=== PATIENT | male | born 1975 | race Hispanic/Latino ===

== ENCOUNTER 2020-08-06 16:38 | Inpatient (IN) | payer OTHER, SELFPAY ==
[2020-08-06] MEDS ORDERED: Ondansetron PF 4 MG/2 ML Vial ONE (17:29)
[2020-08-06 17:33] LABS: #Monocytes 0.7 thou/uL (0.11-0.59); #Neutrophils 11.1 thou/uL (1.40-6.50); %Basophils 0.3 % (0.0-1.0); %Eosinophils 0.4 % (0.0-10.0); %Monocytes 5.2 % (0.0-10.0); %Neutrophils 86.2 % (42.0-75.0); Hemoglobin 11.5 g/dL (14.0-18.0); Mean Corpuscular HGB CONC 31.4 g/dL (32.0-36.0); Mean Corpuscular Hemoglobin 27.4 pg (27.0-31.0); Mean Corpuscular Volume 87.1 fL (78.0-98.0); Mean Platelet Volume 8.8 fL (7.4-10.4); Platelet Count 331 thou/uL (130-400); RBC Distribution Width 12.3 % (11.5-14.5); Red Blood Cell (RBC) Count 4.21 mill/uL (4.70-6.10); White Blood Cell (WBC) Count 12.9 thou/uL (4.8-10.8)
[2020-08-06 17:43] LABS: ALT (SGPT) 10 U/L (8-55); AST (SGOT) 10 U/L (5-34); Albumin 3.1 g/dL (3.5-5.0); Alkaline Phosphatase 94 U/L (40-110); Anion Gap 14 mmol/L (10-20); BUN (Urea Nitrogen) 27 mg/dL (8.9-20.6); Bilirubin, Total 0.3 mg/dL (0.2-1.2); Calc. Creatinine Clearance 0 mL/min (70-130); Calcium 8.6 mg/dL (7.8-10.44); Carbon Dioxide 22 mmol/L (22-29); Chloride 97 mmol/L (98-107); Globulin 4.4 g/dL (2.4-3.5); Magnesium 2.1 mg/dL (1.6-2.6); Phosphorus 3.1 mg/dL (2.3-4.7); Potassium 4.5 mmol/L (3.5-5.1); Protein, Total 7.5 g/dL (6.0-8.3); Sodium 128 mmol/L (136-145)
[2020-08-06 17:53] LABS: Base Excess-Venous -0.6 mmol/L (-2.0 to 3.0); Bicarbonate (HCO3v) 23.3 mmol/L (22.0-28.0); CO2 Tension (PvCO2) 34.8 mmHg (40.0-50.0); Chloride 98 mmol/L (98-107); Hemoglobin - Calc 11.2 g/dL (14.0-18.0); Potassium 4.5 mmol/L (3.5-5.1); Sodium 131 mmol/L (138-145); T. Carbon Dioxide 24.4 mmol/L (22.0-28.0); vO2 Saturation-calc 92.5 % (60.0-85.0)
[2020-08-06 18:01] LABS: Glucose 726 mg/dL (70-105)
[2020-08-06 18:03] LABS: Bilirubin Negative (Negative); Blood, Urine 2+ (Negative); Clarity Turbid (Clear); Glucose, Urine (Dipstick) Greater than 1000 mg/dL (Negative); Ketone, Urine Negative (Negative); Leukocyte 500 Leu/uL (Negative); Nitrite 1+ (Negative); Protein, Urine (Dipstick) 100 mg/dL (Neg-Trace); Squamous Epithelial None Seen HPF (0-3); Urobilinogen Normal mg/dL (Less than 2); WBC/HPF Greater than 50 HPF (0-3); pH, Urine 5.5 (5.0-9.0)
[2020-08-06 18:04] LABS: Bacteria/HPF 1+ HPF (None Seen)
[2020-08-06] MEDS ORDERED: Cefepime 2 GM VIAL ONE (18:15)
[2020-08-06] MEDS ORDERED: Vancomycin 1 GM/200 ML BAG ONE (19:05)
[2020-08-06] MEDS ORDERED: Clindamycin/D5W 900 mg/50 ml Premix Bag ONE (19:05)
[2020-08-06 19:09] LABS: SARS-CoV-2 NAA Rapid Test DETECTED (NotDetected)
[2020-08-06 22:01] VITALS: BMI 21.4
[2020-08-06] MEDS ORDERED: Dextrose 5% in Water 1,000 ML IV PRN (22:45)
[2020-08-06] MEDS ORDERED: Dextrose 50% Abboject 50 ML SYRINGE IVP PRN (22:45)
[2020-08-06] MEDS ORDERED: Acetaminophen 500 MG TAB PO PRN (22:56)
[2020-08-06] MEDS ORDERED: Morphine 2 MG/ML VIAL SLOW IVP PRN (22:56)
[2020-08-06] MEDS: Acetaminophen/Codeine 30-300mg Tablet PO PRN (23:14)
[2020-08-06] MEDS: HumaLOG 300 UNITS/3 ML VIAL SC PRN (23:15)
[2020-08-07] MEDS: Piperacillin/Tazobactam 4.5 GM in Sodium Chloride 0.9% 100 ML IVPB SCH ×4 (00:50→23:01)
[2020-08-07] MEDS: HumaLOG 300 UNITS/3 ML VIAL SC PRN (05:47)
[2020-08-07 06:04] LABS: #Eosinphils 0.1 thou/uL (0.0-0.7); #Lymphocytes 1.7 thou/uL (1.20-3.40); #Monocytes 0.8 thou/uL (0.11-0.59); #Neutrophils 9.5 thou/uL (1.40-6.50); %Basophils 0.2 % (0.0-1.0); %Eosinophils 0.5 % (0.0-10.0); %Lymphocytes 13.9 % (21.0-51.0); %Monocytes 6.6 % (0.0-10.0); %Neutrophils 78.8 % (42.0-75.0); Hemoglobin 9.5 g/dL (14.0-18.0); Mean Corpuscular HGB CONC 33.1 g/dL (32.0-36.0); Mean Corpuscular Volume 84.7 fL (78.0-98.0); Mean Platelet Volume 8.7 fL (7.4-10.4); Platelet Count 289 thou/uL (130-400); Red Blood Cell (RBC) Count 3.38 mill/uL (4.70-6.10)
[2020-08-07] MEDS ORDERED: Sodium Chloride 0.9% 1,000 ML IV SCH (06:15)
[2020-08-07 06:21] LABS: Hemoglobin A1c Greater than 14.0 % (4.0-6.0)
[2020-08-07 06:33] LABS: Anion Gap 11 mmol/L (10-20); BUN (Urea Nitrogen) 20 mg/dL (8.9-20.6); Calc. Creatinine Clearance 92 mL/min (70-130); Calcium 7.8 mg/dL (7.8-10.44); Carbon Dioxide 24 mmol/L (22-29); Chloride 106 mmol/L (98-107); Glucose 337 mg/dL (70-105); Potassium 3.9 mmol/L (3.5-5.1); Sodium 137 mmol/L (136-145)
[2020-08-07] MEDS: Acetaminophen/Codeine 30-300mg Tablet PO PRN (07:53)
[2020-08-07] MEDS: Enoxaparin Sodium 40 MG/0.4 ML SYRINGE SC SCH (07:53)
[2020-08-07] MEDS: Cholecalciferol (Vitamin D3) 400 UNITS TAB PO SCH (07:54)
[2020-08-07] MEDS: Ascorbic Acid 500 mg Chewable Tablet PO SCH (07:54)
[2020-08-07] MEDS: Zinc Sulfate 220 MG CAP PO SCH (07:55)
[2020-08-07] MEDS: Insulin Glargine 15 UNITS in Pre-Filled Syringe 1 EACH SC SCH (08:45)
[2020-08-07] MEDS: Vancomycin 1 GM in Premix Bag 1 BAG IVPB SCH ×3 (11:07→23:57)
[2020-08-07] MEDS: HYDROcodone/Acetaminophen 5/325 mg Tablet PO PRN (11:07)
[2020-08-07] MEDS ORDERED: Magnevist 469MG/ML 20 ML VIAL ONE (12:14)
[2020-08-07] MEDS ORDERED: Dextrose 50% Abboject 50 ML SYRINGE SLOW IVP PRN (12:33)
[2020-08-07] MEDS ORDERED: Dextrose 5% in Water 1,000 ML IV PRN (12:33)
[2020-08-07] MEDS: Insulin Regular 300 UNITS/3 ML VIAL SC PRN ×3 (12:46→21:10)
[2020-08-07] MEDS ORDERED: Insulin Glargine 15 UNITS in Pre-Filled Syringe 1 EACH SC SCH (21:00)
[2020-08-07] MEDS: Insulin Glargine 25 UNITS in Pre-Filled Syringe 1 EACH SC SCH (21:10)
[2020-08-07 23:02] LABS: Vancomycin, Trough 10.1 ug/mL
[2020-08-08 07:25] LABS: Anion Gap 13 mmol/L (10-20); BUN (Urea Nitrogen) 18 mg/dL (8.9-20.6); CRP (Inflammatory) 15.52 mg/dL (= or < 0.5); Calc. Creatinine Clearance 84 mL/min (70-130); Carbon Dioxide 23 mmol/L (22-29); Chloride 104 mmol/L (98-107); Glucose 192 mg/dL (70-105); Potassium 3.5 mmol/L (3.5-5.1); Sodium 136 mmol/L (136-145)
[2020-08-08 07:54] LABS: #Eosinphils 0.1 thou/uL (0.0-0.7); #Lymphocytes 1.7 thou/uL (1.20-3.40); #Monocytes 0.8 thou/uL (0.11-0.59); #Neutrophils 12.3 thou/uL (1.40-6.50); %Basophils 0.3 % (0.0-1.0); %Eosinophils 0.5 % (0.0-10.0); %Lymphocytes 11.6 % (21.0-51.0); %Monocytes 5.4 % (0.0-10.0); %Neutrophils 82.2 % (42.0-75.0); Hemoglobin 9.4 g/dL (14.0-18.0); Mean Corpuscular HGB CONC 32.2 g/dL (32.0-36.0); Mean Corpuscular Hemoglobin 27.5 pg (27.0-31.0); Mean Corpuscular Volume 85.4 fL (78.0-98.0); Mean Platelet Volume 8.7 fL (7.4-10.4); Platelet Count 326 thou/uL (130-400); RBC Distribution Width 12.1 % (11.5-14.5); Red Blood Cell (RBC) Count 3.43 mill/uL (4.70-6.10); White Blood Cell (WBC) Count 14.9 thou/uL (4.8-10.8)
[2020-08-08] MEDS: Piperacillin/Tazobactam 4.5 GM in Sodium Chloride 0.9% 100 ML IVPB SCH ×3 (08:16→23:30)
[2020-08-08] MEDS: Zinc Sulfate 220 MG CAP PO SCH (08:17)
[2020-08-08] MEDS: Cholecalciferol (Vitamin D3) 400 UNITS TAB PO SCH (08:17)
[2020-08-08] MEDS: Ascorbic Acid 500 mg Chewable Tablet PO SCH (08:18)
[2020-08-08] MEDS: Enoxaparin Sodium 40 MG/0.4 ML SYRINGE SC SCH (08:19)
[2020-08-08] MEDS: Insulin Glargine 15 UNITS in Pre-Filled Syringe 1 EACH SC SCH (08:21)
[2020-08-08] MEDS ORDERED: Amlodipine 5 MG TAB PO SCH (09:00)
[2020-08-08] MEDS: Vancomycin 1 GM in Premix Bag 1 BAG IVPB SCH ×2 (11:31→23:26)
[2020-08-08] MEDS: Insulin Regular 300 UNITS/3 ML VIAL SC PRN ×3 (11:45→21:05)
[2020-08-08] MEDS: Acetaminophen/Codeine 30-300mg Tablet PO PRN (16:32)
[2020-08-08] MEDS: Amlodipine 5 MG TAB PO SCH (20:19)
[2020-08-08] MEDS: hydrALAZINE 20 MG/ML VIAL SLOW IVP PRN (20:19)
[2020-08-08] MEDS: Insulin Glargine 25 UNITS in Pre-Filled Syringe 1 EACH SC SCH (21:05)
[2020-08-08] MEDS: HumaLOG 300 UNITS/3 ML VIAL SC SCH (21:06)
[2020-08-08 23:13] LABS: Vancomycin, Trough 16.8 ug/mL
[2020-08-09 06:50] LABS: #Lymphocytes 1.8 thou/uL (1.20-3.40); #Monocytes 0.9 thou/uL (0.11-0.59); #Neutrophils 13.5 thou/uL (1.40-6.50); %Basophils 0.3 % (0.0-1.0); %Eosinophils 0.3 % (0.0-10.0); %Lymphocytes 10.8 % (21.0-51.0); %Monocytes 5.7 % (0.0-10.0); Hemoglobin 9.6 g/dL (14.0-18.0); Mean Corpuscular HGB CONC 33.1 g/dL (32.0-36.0); Mean Corpuscular Hemoglobin 28.3 pg (27.0-31.0); Mean Corpuscular Volume 85.7 fL (78.0-98.0); Mean Platelet Volume 7.9 fL (7.4-10.4); Platelet Count 327 thou/uL (130-400); RBC Distribution Width 12.1 % (11.5-14.5); Red Blood Cell (RBC) Count 3.39 mill/uL (4.70-6.10); White Blood Cell (WBC) Count 16.3 thou/uL (4.8-10.8)
[2020-08-09] MEDS: HumaLOG 300 UNITS/3 ML VIAL SC SCH ×4 (07:26→20:49)
[2020-08-09] MEDS: Cholecalciferol (Vitamin D3) 400 UNITS TAB PO SCH (09:17)
[2020-08-09] MEDS: Ascorbic Acid 500 mg Chewable Tablet PO SCH (09:18)
[2020-08-09] MEDS: Zinc Sulfate 220 MG CAP PO SCH (09:18)
[2020-08-09] MEDS: Amlodipine 5 MG TAB PO SCH ×2 (09:18→20:49)
[2020-08-09] MEDS: Acetaminophen/Codeine 30-300mg Tablet PO PRN (10:58)
[2020-08-09] MEDS: Insulin Glargine 15 UNITS in Pre-Filled Syringe 1 EACH SC SCH (11:03)
[2020-08-09] MEDS: Ondansetron PF 4 MG/2 ML Vial IVP PRN (13:00)
[2020-08-09] MEDS: Clindamycin/D5W 900 MG in Premix Bag 1 BAG IVPB SCH ×2 (13:00→20:49)
[2020-08-09] MEDS: Insulin Regular 300 UNITS/3 ML VIAL SC PRN (18:06)
[2020-08-09] MEDS: Insulin Glargine 25 UNITS in Pre-Filled Syringe 1 EACH SC SCH (20:49)
[2020-08-09] MEDS: HYDROcodone/Acetaminophen 5/325 mg Tablet PO PRN (20:51)
[2020-08-10] MEDS: Clindamycin/D5W 900 MG in Premix Bag 1 BAG IVPB SCH ×3 (05:05→21:32)
[2020-08-10 06:08] LABS: #Eosinphils 0.1 thou/uL (0.0-0.7); #Lymphocytes 1.5 thou/uL (1.20-3.40); #Neutrophils 11.2 thou/uL (1.40-6.50); %Basophils 0.2 % (0.0-1.0); %Eosinophils 0.9 % (0.0-10.0); %Lymphocytes 11.1 % (21.0-51.0); %Neutrophils 80.9 % (42.0-75.0); Hemoglobin 9.5 g/dL (14.0-18.0); Mean Corpuscular HGB CONC 33.4 g/dL (32.0-36.0); Mean Corpuscular Hemoglobin 29.1 pg (27.0-31.0); Mean Platelet Volume 7.6 fL (7.4-10.4); Platelet Count 322 thou/uL (130-400); RBC Distribution Width 12.3 % (11.5-14.5); Red Blood Cell (RBC) Count 3.27 mill/uL (4.70-6.10); White Blood Cell (WBC) Count 13.9 thou/uL (4.8-10.8)
[2020-08-10] MEDS ORDERED: Fentanyl 100 MCG/2 ML VIAL ONE (06:38)
[2020-08-10] MEDS ORDERED: Neomycin-Polymyxin 1 ML AMP ONE ×3 (06:39→06:50)
[2020-08-10] MEDS: Insulin Glargine 15 UNITS in Pre-Filled Syringe 1 EACH SC SCH (09:05)
[2020-08-10] MEDS: Cholecalciferol (Vitamin D3) 400 UNITS TAB PO SCH (09:05)
[2020-08-10] MEDS: Ascorbic Acid 500 mg Chewable Tablet PO SCH (09:05)
[2020-08-10] MEDS: Amlodipine 5 MG TAB PO SCH ×2 (09:05→20:33)
[2020-08-10] MEDS: HumaLOG 300 UNITS/3 ML VIAL SC SCH ×3 (09:06→20:34)
[2020-08-10] MEDS: Zinc Sulfate 220 MG CAP PO SCH (09:06)
[2020-08-10] MEDS: hydrALAZINE 20 MG/ML VIAL SLOW IVP PRN (12:11)
[2020-08-10] MEDS: Acetaminophen/Codeine 30-300mg Tablet PO PRN (14:52)
[2020-08-10] MEDS: Insulin Regular 300 UNITS/3 ML VIAL SC PRN (16:47)
[2020-08-10] MEDS: Insulin Glargine 25 UNITS in Pre-Filled Syringe 1 EACH SC SCH (20:34)
[2020-08-10] MEDS: HYDROcodone/Acetaminophen 5/325 mg Tablet PO PRN (20:39)
[2020-08-11] MEDS: Acetaminophen/Codeine 30-300mg Tablet PO PRN ×2 (05:15→13:43)
[2020-08-11] MEDS: Clindamycin/D5W 900 MG in Premix Bag 1 BAG IVPB SCH ×3 (05:15→21:11)
[2020-08-11 05:56] LABS: #Eosinphils 0.1 thou/uL (0.0-0.7); #Lymphocytes 1.4 thou/uL (1.20-3.40); #Neutrophils 9.9 thou/uL (1.40-6.50); %Basophils 0.1 % (0.0-1.0); %Eosinophils 1.1 % (0.0-10.0); %Lymphocytes 11.2 % (21.0-51.0); %Monocytes 7.9 % (0.0-10.0); %Neutrophils 79.7 % (42.0-75.0); Hemoglobin 9.4 g/dL (14.0-18.0); Mean Corpuscular HGB CONC 32.5 g/dL (32.0-36.0); Mean Corpuscular Hemoglobin 27.9 pg (27.0-31.0); Mean Corpuscular Volume 85.9 fL (78.0-98.0); Mean Platelet Volume 7.3 fL (7.4-10.4); Platelet Count 360 thou/uL (130-400); RBC Distribution Width 12.5 % (11.5-14.5); Red Blood Cell (RBC) Count 3.37 mill/uL (4.70-6.10); White Blood Cell (WBC) Count 12.4 thou/uL (4.8-10.8)
[2020-08-11 06:18] LABS: Anion Gap 12 mmol/L (10-20); BUN (Urea Nitrogen) 20 mg/dL (8.9-20.6); CRP (Inflammatory) 6.44 mg/dL (= or < 0.5); Calc. Creatinine Clearance 64 mL/min (70-130); Carbon Dioxide 26 mmol/L (22-29); Chloride 101 mmol/L (98-107); Glucose 91 mg/dL (70-105); Potassium 3.6 mmol/L (3.5-5.1); Sodium 135 mmol/L (136-145)
[2020-08-11] MEDS: Amlodipine 5 MG TAB PO SCH ×2 (08:06→21:06)
[2020-08-11] MEDS: Zinc Sulfate 220 MG CAP PO SCH (08:06)
[2020-08-11] MEDS: Cholecalciferol (Vitamin D3) 400 UNITS TAB PO SCH (08:06)
[2020-08-11] MEDS: Ascorbic Acid 500 mg Chewable Tablet PO SCH (08:07)
[2020-08-11] MEDS: Enoxaparin Sodium 40 MG/0.4 ML SYRINGE SC SCH (08:07)
[2020-08-11] MEDS: Insulin Glargine 15 UNITS in Pre-Filled Syringe 1 EACH SC SCH (08:07)
[2020-08-11] MEDS: HumaLOG 300 UNITS/3 ML VIAL SC SCH ×3 (08:08→21:07)
[2020-08-11] MEDS ORDERED: Benzonatate 100 MG CAP PO PRN (13:38)
[2020-08-11] MEDS ORDERED: HumaLOG 300 UNITS/3 ML VIAL SC SCH (21:00)
[2020-08-11] MEDS: Ondansetron PF 4 MG/2 ML Vial IVP PRN (21:11)
[2020-08-12] MEDS: Clindamycin/D5W 900 MG in Premix Bag 1 BAG IVPB SCH ×3 (05:01→21:07)
[2020-08-12 06:55] LABS: #Eosinphils 0.1 thou/uL (0.0-0.7); #Lymphocytes 1.5 thou/uL (1.20-3.40); #Monocytes 0.8 thou/uL (0.11-0.59); #Neutrophils 7.8 thou/uL (1.40-6.50); %Basophils 0.2 % (0.0-1.0); %Eosinophils 1.4 % (0.0-10.0); %Lymphocytes 14.8 % (21.0-51.0); %Monocytes 7.8 % (0.0-10.0); %Neutrophils 75.9 % (42.0-75.0); Hemoglobin 9.9 g/dL (14.0-18.0); Mean Corpuscular HGB CONC 33.2 g/dL (32.0-36.0); Mean Corpuscular Hemoglobin 28.3 pg (27.0-31.0); Mean Corpuscular Volume 85.3 fL (78.0-98.0); Mean Platelet Volume 7.4 fL (7.4-10.4); Platelet Count 391 thou/uL (130-400); RBC Distribution Width 12.4 % (11.5-14.5); Red Blood Cell (RBC) Count 3.48 mill/uL (4.70-6.10); White Blood Cell (WBC) Count 10.3 thou/uL (4.8-10.8)
[2020-08-12 07:14] LABS: Anion Gap 13 mmol/L (10-20); BUN (Urea Nitrogen) 17 mg/dL (8.9-20.6); Calc. Creatinine Clearance 65 mL/min (70-130); Calcium 8.4 mg/dL (7.8-10.44); Carbon Dioxide 24 mmol/L (22-29); Chloride 101 mmol/L (98-107); Glucose 129 mg/dL (70-105); Potassium 4.1 mmol/L (3.5-5.1); Sodium 134 mmol/L (136-145)
[2020-08-12] MEDS: Amlodipine 5 MG TAB PO SCH ×2 (07:45→20:30)
[2020-08-12] MEDS: Ascorbic Acid 500 mg Chewable Tablet PO SCH ×2 (07:45→13:08)
[2020-08-12] MEDS: Cholecalciferol (Vitamin D3) 400 UNITS TAB PO SCH ×2 (07:46→13:08)
[2020-08-12] MEDS: Zinc Sulfate 220 MG CAP PO SCH ×2 (07:46→13:08)
[2020-08-12] MEDS: HumaLOG 300 UNITS/3 ML VIAL SC SCH ×2 (07:47→21:08)
[2020-08-12] MEDS ORDERED: HYDROmorphone 0.5 MG/0.5 ML SYRINGE ONE (07:49)
[2020-08-12] MEDS: Enoxaparin Sodium 40 MG/0.4 ML SYRINGE SC SCH (07:59)
[2020-08-12] MEDS: Insulin Glargine 15 UNITS in Pre-Filled Syringe 1 EACH SC SCH (08:00)
[2020-08-12] MEDS ORDERED: Promethazine HCl 25 MG/ML VIAL SLOW IVP PRN (08:24)
[2020-08-12] MEDS ORDERED: Ondansetron HCl/PF 4 MG/2 ML Vial IVP PRN (08:24)
[2020-08-12] MEDS ORDERED: HYDROmorphone 2 MG/ML VIAL SLOW IVP PRN (08:24)
[2020-08-12] MEDS ORDERED: Promethazine HCl 25 MG/ML VIAL IM PRN (08:24)
[2020-08-12] MEDS ORDERED: PACU-Morphine 4MG/ML VIAL SLOW IVP PRN (08:24)
[2020-08-12] MEDS ORDERED: Fentanyl 100 MCG/2 ML VIAL ONE (09:06)
[2020-08-12] MEDS ORDERED: Lidocaine 1% PF 5 ML VIAL ONE (10:51)
[2020-08-12] MEDS ORDERED: PROPOFOL 200 MG/20 ML VIAL ONE (10:51)
[2020-08-12] MEDS ORDERED: Ondansetron PF 4 MG/2 ML Vial ONE (10:51)
[2020-08-12] MEDS ORDERED: Ketorolac Tromethamine 30 MG/ML VIAL ONE (10:51)
[2020-08-12] MEDS: HYDROcodone/Acetaminophen 5/325 mg Tablet PO PRN (20:29)
[2020-08-12] MEDS: Ondansetron PF 4 MG/2 ML Vial IVP PRN (20:38)
[2020-08-12] MEDS: hydrALAZINE 20 MG/ML VIAL SLOW IVP PRN (20:52)
[2020-08-13] MEDS: Clindamycin/D5W 900 MG in Premix Bag 1 BAG IVPB SCH ×3 (05:08→21:22)
[2020-08-13] MEDS: Insulin Regular 300 UNITS/3 ML VIAL SC PRN (05:09)
[2020-08-13] MEDS: Acetaminophen/Codeine 30-300mg Tablet PO PRN (05:11)
[2020-08-13] MEDS ORDERED: Labetalol HCl 100 MG/20 ML VIAL ONE (08:29)
[2020-08-13] MEDS: Ascorbic Acid 500 mg Chewable Tablet PO SCH (08:36)
[2020-08-13] MEDS: Insulin Glargine 15 UNITS in Pre-Filled Syringe 1 EACH SC SCH (08:37)
[2020-08-13] MEDS: Enoxaparin Sodium 40 MG/0.4 ML SYRINGE SC SCH (08:37)
[2020-08-13] MEDS: Cholecalciferol (Vitamin D3) 400 UNITS TAB PO SCH (08:37)
[2020-08-13] MEDS: Zinc Sulfate 220 MG CAP PO SCH (08:38)
[2020-08-13 09:02] LABS: #Eosinphils 0.1 thou/uL (0.0-0.7); #Lymphocytes 1.3 thou/uL (1.20-3.40); #Monocytes 0.8 thou/uL (0.11-0.59); #Neutrophils 9.7 thou/uL (1.40-6.50); %Basophils 0.3 % (0.0-1.0); %Eosinophils 0.5 % (0.0-10.0); %Lymphocytes 10.9 % (21.0-51.0); %Monocytes 6.5 % (0.0-10.0); %Neutrophils 81.8 % (42.0-75.0); Hemoglobin 9.5 g/dL (14.0-18.0); Mean Corpuscular HGB CONC 32.6 g/dL (32.0-36.0); Mean Corpuscular Hemoglobin 28.2 pg (27.0-31.0); Mean Corpuscular Volume 86.5 fL (78.0-98.0); Mean Platelet Volume 7.8 fL (7.4-10.4); Platelet Count 376 thou/uL (130-400); RBC Distribution Width 12.5 % (11.5-14.5); Red Blood Cell (RBC) Count 3.35 mill/uL (4.70-6.10); White Blood Cell (WBC) Count 11.8 thou/uL (4.8-10.8)
[2020-08-13 09:22] LABS: Anion Gap 14 mmol/L (10-20); BUN (Urea Nitrogen) 23 mg/dL (8.9-20.6); Calc. Creatinine Clearance 52 mL/min (70-130); Calcium 8.2 mg/dL (7.8-10.44); Carbon Dioxide 26 mmol/L (22-29); Chloride 100 mmol/L (98-107); Glucose 209 mg/dL (70-105); Potassium 4.2 mmol/L (3.5-5.1); Sodium 136 mmol/L (136-145)
[2020-08-13] MEDS: HumaLOG 300 UNITS/3 ML VIAL SC SCH ×2 (09:46→21:20)
[2020-08-13] MEDS: Amlodipine 5 MG TAB PO SCH ×2 (09:46→21:20)
[2020-08-13] MEDS: HYDROcodone/Acetaminophen 5/325 mg Tablet PO PRN (21:19)
[2020-08-14] MEDS: Clindamycin/D5W 900 MG in Premix Bag 1 BAG IVPB SCH ×2 (05:00→15:23)
[2020-08-14 06:19] LABS: #Eosinphils 0.2 thou/uL (0.0-0.7); #Lymphocytes 1.3 thou/uL (1.20-3.40); #Monocytes 0.7 thou/uL (0.11-0.59); #Neutrophils 7.8 thou/uL (1.40-6.50); %Basophils 0.4 % (0.0-1.0); %Eosinophils 1.6 % (0.0-10.0); %Lymphocytes 13.1 % (21.0-51.0); %Monocytes 7.2 % (0.0-10.0); %Neutrophils 77.7 % (42.0-75.0); Hemoglobin 9.3 g/dL (14.0-18.0); Mean Corpuscular HGB CONC 31.4 g/dL (32.0-36.0); Mean Corpuscular Hemoglobin 27.1 pg (27.0-31.0); Mean Corpuscular Volume 86.1 fL (78.0-98.0); Mean Platelet Volume 7.4 fL (7.4-10.4); Platelet Count 395 thou/uL (130-400); RBC Distribution Width 12.5 % (11.5-14.5); Red Blood Cell (RBC) Count 3.44 mill/uL (4.70-6.10); White Blood Cell (WBC) Count 10.1 thou/uL (4.8-10.8)
[2020-08-14 06:38] LABS: Anion Gap 15 mmol/L (10-20); BUN (Urea Nitrogen) 25 mg/dL (8.9-20.6); Calc. Creatinine Clearance 58 mL/min (70-130); Calcium 8.5 mg/dL (7.8-10.44); Carbon Dioxide 26 mmol/L (22-29); Chloride 101 mmol/L (98-107); Glucose 194 mg/dL (70-105); Sodium 137 mmol/L (136-145)
[2020-08-14] MEDS: Enoxaparin Sodium 40 MG/0.4 ML SYRINGE SC SCH (08:04)
[2020-08-14] MEDS: Amlodipine 5 MG TAB PO SCH (08:05)
[2020-08-14] MEDS: Zinc Sulfate 220 MG CAP PO SCH (08:05)
[2020-08-14] MEDS: Ascorbic Acid 500 mg Chewable Tablet PO SCH (08:05)
[2020-08-14] MEDS: Cholecalciferol (Vitamin D3) 400 UNITS TAB PO SCH (08:05)
[2020-08-14] MEDS: HumaLOG 300 UNITS/3 ML VIAL SC SCH (08:36)
[2020-08-14] MEDS: Insulin Glargine 15 UNITS in Pre-Filled Syringe 1 EACH SC SCH (10:03)
[2020-08-14] MEDS: Insulin Regular 300 UNITS/3 ML VIAL SC PRN (12:23)
[2020-08-14 16:04] VITALS: BP 137/73; TEMP 98.4
== END 2020-08-14 16:46 | disposition home or self-care (01) | DRG 981 ==
LOC: ERS 16:38 → T4-A 18:55
PROVIDERS: ADMIT Internal Medicine; ATTEND Internal Medicine
PROC: 0LB60ZZ Excision of Left Lower Arm and Wrist Tendon, Open Approach (ICD-10-PCS; principal; 2020-08-12)
DX: U07.1 COVID-19 (principal); J12.82 Pneumonia due to coronavirus disease 2019; L03.114 Cellulitis of left upper limb; L02.612 Cutaneous abscess of left foot; N17.9 Acute kidney failure, unspecified; N39.0 Urinary tract infection, site not specified; E11.621 Type 2 diabetes mellitus with foot ulcer; E11.65 Type 2 diabetes mellitus with hyperglycemia; L97.529 Non-pressure chronic ulcer of other part of left foot with unspecified severity; I12.9 Hypertensive chronic kidney disease with stage 1 through stage 4 chronic kidney disease, or unspecified chronic kidney disease; E11.22 Type 2 diabetes mellitus with diabetic chronic kidney disease; D64.9 Anemia, unspecified; N18.9 Chronic kidney disease, unspecified; B95.8 Unspecified staphylococcus as the cause of diseases classified elsewhere
CPT/HCPCS: 0240U; 36415; 36416; 71045; 80048; 80053; 80202; 81003; 81015; 82010; 82330; 82728; 82803; 83036; 83605; 83735; 84100; 85025; 85379; 86140; 87040; 87070; 87077; 87086; 87186; 87205; 93005; 96365; 96366; 96368; 96375; A9579; J0360; J0692; J1170; J1650; J1815; J1885; J2270; J2405; J2543; J2704; J3010; J3370; J3490

== ENCOUNTER 2025-01-20 10:03 | Inpatient (IN) | payer OTHER, SELFPAY ==
[2025-01-20] MEDS ORDERED: Heparin 10,000 UNITS/ 10 ML VIAL ONE (10:35)
[2025-01-20 12:11] LABS: #Basophils 0.03 10x3/uL (0.0-0.2); #Eosinophils 0.17 10x3/uL (0.0-0.7); #Monocytes 0.56 10x3/uL (0.11-0.59); #Neutrophils 4.13 10x3/uL (1.40-6.50); %Basophils 0.5 % (0.0-1.0); %Eosinophils 2.9 % (0.0-10.0); %Lymphocytes 16.1 % (21.0-51.0); %Monocytes 9.6 % (0.0-10.0); %Neutrophils 70.6 % (42.0-75.0); Hematocrit 30.9 % (42.0-52.0); Hemoglobin 10.5 g/dL (14.0-18.0); Mean Corpuscular Hemoglobin 28.9 pg (27.0-31.0); Mean Corpuscular Volume 85.1 fL (78.0-98.0); Platelet Count 134 10x3/uL (130-400); Red Blood Cell (RBC) Count 3.63 mill/uL (4.70-6.10); White Blood Cell (WBC) Count 5.85 10x3/uL (4.8-10.8)
[2025-01-20 12:58] LABS: ALT (SGPT) 31 U/L (Less than 45); AST (SGOT) 25 U/L (11-34); Albumin 3.5 g/dL (3.1-4.5); Alkaline Phosphatase 77 U/L (40-110); Anion Gap 20 mmol/L (10-20); BUN (Urea Nitrogen) 66 mg/dL (8.9-20.6); Bilirubin, Total 0.5 mg/dL (0.3-1.2); Calc. Creatinine Clearance 0 mL/min (70-130); Calcium 8.5 mg/dL (7.8-10.44); Carbon Dioxide 26 mmol/L (22-29); Chloride 99 mmol/L (98-107); Globulin 3.2 g/dL (2.4-3.5); Glucose 109 mg/dL (70-105); Potassium 6.4 mmol/L (3.5-5.1); Sodium 139 mmol/L (136-145)
[2025-01-20] MEDS ORDERED: hydrALAZINE 10 MG TAB ONE (13:13)
[2025-01-20] MEDS ORDERED: Metoclopramide HCl 10 MG (2 mL) VIAL ONE (17:15)
[2025-01-20] MEDS ORDERED: diphenhydrAMINE 50 MG/ML VIAL ONE (17:15)
[2025-01-20] MEDS ORDERED: hydrALAZINE 20 MG/ML VIAL ONE (17:17)
[2025-01-20] MEDS ORDERED: niCARdipine 25 MG/10 ML SDV ONE (19:15)
[2025-01-20 19:27] LABS: #Basophils Less than 0.03 10x3/uL (0.0-0.2); #Eosinophils 0.14 10x3/uL (0.0-0.7); #Monocytes 0.58 10x3/uL (0.11-0.59); #Neutrophils 3.54 10x3/uL (1.40-6.50); %Basophils 0.4 % (0.0-1.0); %Eosinophils 2.8 % (0.0-10.0); %Lymphocytes 12.4 % (21.0-51.0); %Monocytes 11.8 % (0.0-10.0); %Neutrophils 72.0 % (42.0-75.0); Hematocrit 29.7 % (42.0-52.0); Hemoglobin 9.8 g/dL (14.0-18.0); Mean Corpuscular Hemoglobin 27.8 pg (27.0-31.0); Mean Corpuscular Volume 84.4 fL (78.0-98.0); Platelet Count 122 10x3/uL (130-400); Red Blood Cell (RBC) Count 3.52 mill/uL (4.70-6.10); White Blood Cell (WBC) Count 4.92 10x3/uL (4.8-10.8)
[2025-01-20 19:47] LABS: Troponin I 0.035 ng/mL (< 0.028)
[2025-01-20 19:55] LABS: ALT (SGPT) 31 U/L (Less than 45); AST (SGOT) 24 U/L (11-34); Albumin 3.4 g/dL (3.1-4.5); Alkaline Phosphatase 75 U/L (40-110); Anion Gap 15 mmol/L (10-20); BUN (Urea Nitrogen) 21 mg/dL (8.9-20.6); Bilirubin, Total 0.6 mg/dL (0.3-1.2); CK (CPK) 55 U/L (30-200); Calc. Creatinine Clearance 0 mL/min (70-130); Calcium 8.2 mg/dL (7.8-10.44); Carbon Dioxide 25 mmol/L (22-29); Chloride 101 mmol/L (98-107); Globulin 2.8 g/dL (2.4-3.5); Glucose 115 mg/dL (70-105); Lipase 39 U/L (8-78); Magnesium 1.8 mg/dL (1.6-2.6); Potassium 4.1 mmol/L (3.5-5.1); Sodium 137 mmol/L (136-145)
[2025-01-20] MEDS ORDERED: levETIRAcetam 500 MG (5 mL) VIAL ONE (22:05)
[2025-01-21] MEDS: Ondansetron PF 4 MG/2 ML Vial ONE (00:50)
[2025-01-21] MEDS: hydrALAZINE 20 MG/ML VIAL SLOW IVP SCH (01:00)
[2025-01-21] MEDS: hydrALAZINE 20 MG/ML VIAL SLOW IVP PRN (01:01)
[2025-01-21] MEDS: niCARdipine 50 MG, Admixture Fee 1 EACH in Sodium Chloride 0.9% 250 ML 230 ML IV SCH (01:03)
[2025-01-21] MEDS ORDERED: Vancomycin Diaylsis Sliding Scale (Wt 71-99) FS SCH (01:30)
[2025-01-21] MEDS: Vancomycin 1.5 GM / NS 500ML VIAL-2-BAG IVPB SCH (03:39)
[2025-01-21 08:51] LABS: #Basophils Less than 0.03 10x3/uL (0.0-0.2); #Eosinophils Less than 0.03 10x3/uL (0.0-0.7); #Monocytes 0.82 10x3/uL (0.11-0.59); #Neutrophils 7.45 10x3/uL (1.40-6.50); %Basophils 0.1 % (0.0-1.0); %Eosinophils 0.1 % (0.0-10.0); %Lymphocytes 9.0 % (21.0-51.0); %Monocytes 9.0 % (0.0-10.0); %Neutrophils 81.5 % (42.0-75.0); Hematocrit 29.0 % (42.0-52.0); Hemoglobin 9.5 g/dL (14.0-18.0); Mean Corpuscular Hemoglobin 27.8 pg (27.0-31.0); Mean Corpuscular Volume 84.8 fL (78.0-98.0); Platelet Count 135 10x3/uL (130-400); Red Blood Cell (RBC) Count 3.42 mill/uL (4.70-6.10); White Blood Cell (WBC) Count 9.14 10x3/uL (4.8-10.8)
[2025-01-21] MEDS: levETIRAcetam 500 MG (5 mL) VIAL SLOW IVP SCH (08:51)
[2025-01-21] MEDS ORDERED: Vancomycin 1 GM in Sodium Chloride 0.9% 250 ML 250 ML IVPB SCH (09:00)
[2025-01-21 09:29] LABS: Anion Gap 16 mmol/L (10-20); BUN (Urea Nitrogen) 29 mg/dL (8.9-20.6); Calc. Creatinine Clearance 15 mL/min (70-130); Calcium 8.5 mg/dL (7.8-10.44); Carbon Dioxide 24 mmol/L (22-29); Chloride 102 mmol/L (98-107); Glucose 141 mg/dL (70-105); Potassium 5.4 mmol/L (3.5-5.1); Sodium 137 mmol/L (136-145)
[2025-01-21] MEDS: Carvedilol 6.25 MG TAB PO SCH (10:24)
[2025-01-21] MEDS: NIFEdipine XL 90 MG ER.TAB PO SCH (10:25)
[2025-01-21] MEDS: cefTRIAXone\\ROCEPHIN 1 GM in Sodium Chloride 0.9% 100 ML IVPB SCH (10:32)
[2025-01-21] MEDS: Pantoprazole 40 MG VIAL IVP SCH (10:32)
[2025-01-21] MEDS: Mupirocin 1 GM TUBE NASAL DECOLONIZATION NASAL SCH (10:32)
[2025-01-21] MEDS: Pantoprazole 40 MG DR.TAB PO SCH (10:33)
[2025-01-21] MEDS: EPOETIN ALFA-EPBX (ESRD) 10,000 UNITS/ML VIAL SC SCH (11:57)
[2025-01-21 17:14] LABS: Vancomycin, Trough 20.5 ug/mL
[2025-01-22 03:54] LABS: #Basophils 0.04 10x3/uL (0.0-0.2); #Eosinophils 0.06 10x3/uL (0.0-0.7); #Monocytes 0.71 10x3/uL (0.11-0.59); #Neutrophils 4.45 10x3/uL (1.40-6.50); %Basophils 0.6 % (0.0-1.0); %Eosinophils 0.9 % (0.0-10.0); %Lymphocytes 17.8 % (21.0-51.0); %Monocytes 11.1 % (0.0-10.0); %Neutrophils 69.4 % (42.0-75.0); Hematocrit 27.6 % (42.0-52.0); Hemoglobin 8.8 g/dL (14.0-18.0); Mean Corpuscular Hemoglobin 27.9 pg (27.0-31.0); Mean Corpuscular Volume 87.6 fL (78.0-98.0); Platelet Count 149 10x3/uL (130-400); Red Blood Cell (RBC) Count 3.15 mill/uL (4.70-6.10); White Blood Cell (WBC) Count 6.41 10x3/uL (4.8-10.8)
[2025-01-22 04:13] LABS: Anion Gap 16 mmol/L (10-20); BUN (Urea Nitrogen) 24 mg/dL (8.9-20.6); Calc. Creatinine Clearance 17 mL/min (70-130); Calcium 8.4 mg/dL (7.8-10.44); Carbon Dioxide 25 mmol/L (22-29); Chloride 103 mmol/L (98-107); Glucose 98 mg/dL (70-105); Potassium 4.7 mmol/L (3.5-5.1); Sodium 139 mmol/L (136-145)
[2025-01-22] MEDS: Calcitriol 0.25 MCG CAP PO SCH (09:34)
[2025-01-22] MEDS ORDERED: Glucagon 1 MG/ML KIT IM PRN (09:39)
[2025-01-22] MEDS ORDERED: Dextrose 50% Abboject 50 ML SYRINGE SLOW IVP PRN (09:39)
[2025-01-22] MEDS: Ondansetron PF 4 MG/2 ML Vial IVP PRN (22:03)
[2025-01-23 07:29] LABS: #Basophils 0.03 10x3/uL (0.0-0.2); #Eosinophils 0.22 10x3/uL (0.0-0.7); #Monocytes 0.65 10x3/uL (0.11-0.59); #Neutrophils 4.44 10x3/uL (1.40-6.50); %Basophils 0.5 % (0.0-1.0); %Eosinophils 3.3 % (0.0-10.0); %Lymphocytes 18.0 % (21.0-51.0); %Monocytes 9.8 % (0.0-10.0); %Neutrophils 67.3 % (42.0-75.0); Hematocrit 28.6 % (42.0-52.0); Hemoglobin 9.2 g/dL (14.0-18.0); Mean Corpuscular Hemoglobin 27.7 pg (27.0-31.0); Mean Corpuscular Volume 86.1 fL (78.0-98.0); Platelet Count 166 10x3/uL (130-400); Red Blood Cell (RBC) Count 3.32 mill/uL (4.70-6.10); White Blood Cell (WBC) Count 6.60 10x3/uL (4.8-10.8)
[2025-01-23 07:47] LABS: Vancomycin, Trough 29.3 ug/mL
[2025-01-23 07:48] LABS: Anion Gap 16 mmol/L (10-20); BUN (Urea Nitrogen) 36 mg/dL (8.9-20.6); Calc. Creatinine Clearance 11 mL/min (70-130); Calcium 8.3 mg/dL (7.8-10.44); Carbon Dioxide 25 mmol/L (22-29); Chloride 101 mmol/L (98-107); Glucose 104 mg/dL (70-105); Potassium 4.6 mmol/L (3.5-5.1); Sodium 137 mmol/L (136-145)
[2025-01-23] MEDS ORDERED: Heparin 10,000 UNITS/ 10 ML VIAL ONE (09:31)
[2025-01-23] MEDS: EPOETIN ALFA-EPBX (ESRD) 10,000 UNITS/ML VIAL IVP SCH (13:58)
[2025-01-23] MEDS: Tuberculin PPD 0.1 ML SYRINGE (10 TEST VIAL) I-DERMAL SCH (14:32)
[2025-01-23] MEDS: Carvedilol 25 MG TAB PO SCH (17:57)
[2025-01-24] MEDS: Losartan 25 MG TAB PO SCH (12:16)
[2025-01-24] MEDS: Cephalexin 250 MG CAP PO SCH (17:18)
[2025-01-25] MEDS: Losartan 25 MG TAB PO SCH (08:16)
[2025-01-25] MEDS ORDERED: Heparin 10,000 UNITS/ 10 ML VIAL ONE (08:51)
[2025-01-25 09:08] LABS: Bacteria/HPF None Seen HPF (None Seen); CAUTI Indications for Culture Alt mental st,lethar; Glucose, Urine (Dipstick) 500 mg/dL (Negative); Leukocyte Negative Leu/uL (Negative); Protein, Urine (Dipstick) 300 mg/dL (Neg-Trace); Specific Gravity, Urine 1.034 (1.002-1.036); WBC/HPF 0-3 HPF (0-3)
[2025-01-25 09:15] LABS: Urine Culture Reflex No No
[2025-01-25 09:38] LABS: Cocaine Metabolite Screen Negative (Negative); THC/Cannabinoid Screen Negative (Negative); Tricyclic Screen Negative (Negative)
[2025-01-25] MEDS: Acetaminophen 325 MG TAB PO PRN (16:40)
[2025-01-25 20:01] LABS: HBSAB Concentration Less than 8.00 mIU/mL; Hep B Core Total Ab NONREACTIVE (NonReactive); Hep B Core Total Index 0.14 S/CO (0-0.79); Hep B Surf Ag NONREACTIVE S/CO (NonReactive); Hep C IgG Ab NONREACTIVE S/CO (NonReactive); Hep C Index 0.10 S/CO (0-0.79)
[2025-01-26 05:04] VITALS: BMI 25.0
[2025-01-26] MEDS: READ PPD TEST SITE PO SCH (09:09)
[2025-01-26 17:10] VITALS: BMI 25.0
[2025-01-27 05:10] LABS: #Basophils 0.04 10x3/uL (0.0-0.2); #Eosinophils 0.27 10x3/uL (0.0-0.7); #Monocytes 0.63 10x3/uL (0.11-0.59); #Neutrophils 3.72 10x3/uL (1.40-6.50); %Basophils 0.7 % (0.0-1.0); %Eosinophils 4.5 % (0.0-10.0); %Lymphocytes 21.0 % (21.0-51.0); %Monocytes 10.6 % (0.0-10.0); %Neutrophils 62.7 % (42.0-75.0); Hematocrit 29.1 % (42.0-52.0); Hemoglobin 9.6 g/dL (14.0-18.0); Mean Corpuscular Hemoglobin 28.2 pg (27.0-31.0); Mean Corpuscular Volume 85.6 fL (78.0-98.0); Platelet Count 217 10x3/uL (130-400); Red Blood Cell (RBC) Count 3.40 mill/uL (4.70-6.10); White Blood Cell (WBC) Count 5.94 10x3/uL (4.8-10.8)
[2025-01-27 05:26] LABS: Anion Gap 15 mmol/L (10-20); BUN (Urea Nitrogen) 38 mg/dL (8.9-20.6); Calc. Creatinine Clearance 11 mL/min (70-130); Calcium 8.3 mg/dL (7.8-10.44); Carbon Dioxide 27 mmol/L (22-29); Chloride 99 mmol/L (98-107); Glucose 137 mg/dL (70-105); Potassium 4.2 mmol/L (3.5-5.1); Sodium 137 mmol/L (136-145)
[2025-01-27] MEDS ORDERED: Heparin 10,000 UNITS/ 10 ML VIAL ONE (09:22)
[2025-01-27] MEDS: Losartan 25 MG TAB PO SCH ×2 (10:49→13:25)
[2025-01-28] MEDS: Losartan 25 MG TAB PO SCH (09:44)
[2025-01-30 07:34] LABS: #Basophils 0.03 10x3/uL (0.0-0.2); #Eosinophils 0.27 10x3/uL (0.0-0.7); #Monocytes 0.62 10x3/uL (0.11-0.59); #Neutrophils 4.95 10x3/uL (1.40-6.50); %Basophils 0.4 % (0.0-1.0); %Eosinophils 3.7 % (0.0-10.0); %Lymphocytes 18.8 % (21.0-51.0); %Monocytes 8.5 % (0.0-10.0); %Neutrophils 68.1 % (42.0-75.0); Hematocrit 28.7 % (42.0-52.0); Hemoglobin 9.6 g/dL (14.0-18.0); Mean Corpuscular Hemoglobin 28.3 pg (27.0-31.0); Mean Corpuscular Volume 84.7 fL (78.0-98.0); Platelet Count 224 10x3/uL (130-400); Red Blood Cell (RBC) Count 3.39 mill/uL (4.70-6.10); White Blood Cell (WBC) Count 7.28 10x3/uL (4.8-10.8)
[2025-01-30 07:46] LABS: Anion Gap 18 mmol/L (10-20); BUN (Urea Nitrogen) 53 mg/dL (8.9-20.6); Calc. Creatinine Clearance 9 mL/min (70-130); Calcium 8.6 mg/dL (7.8-10.44); Carbon Dioxide 23 mmol/L (22-29); Chloride 96 mmol/L (98-107); Glucose 97 mg/dL (70-105); Potassium 5.5 mmol/L (3.5-5.1); Sodium 131 mmol/L (136-145)
[2025-01-30] MEDS ORDERED: Heparin 10,000 UNITS/ 10 ML VIAL ONE (11:28)
[2025-01-31 05:57] LABS: #Basophils Less than 0.03 10x3/uL (0.0-0.2); #Eosinophils 0.17 10x3/uL (0.0-0.7); #Monocytes 0.73 10x3/uL (0.11-0.59); #Neutrophils 4.21 10x3/uL (1.40-6.50); %Basophils 0.3 % (0.0-1.0); %Eosinophils 2.7 % (0.0-10.0); %Lymphocytes 18.1 % (21.0-51.0); %Monocytes 11.6 % (0.0-10.0); %Neutrophils 66.8 % (42.0-75.0); Hematocrit 30.9 % (42.0-52.0); Hemoglobin 10.1 g/dL (14.0-18.0); Mean Corpuscular Hemoglobin 28.0 pg (27.0-31.0); Mean Corpuscular Volume 85.6 fL (78.0-98.0); Platelet Count 219 10x3/uL (130-400); Red Blood Cell (RBC) Count 3.61 mill/uL (4.70-6.10); White Blood Cell (WBC) Count 6.30 10x3/uL (4.8-10.8)
[2025-01-31 06:01] LABS: Anion Gap 14 mmol/L (10-20); BUN (Urea Nitrogen) 27 mg/dL (8.9-20.6); Calc. Creatinine Clearance 15 mL/min (70-130); Calcium 8.4 mg/dL (7.8-10.44); Carbon Dioxide 26 mmol/L (22-29); Chloride 98 mmol/L (98-107); Glucose 87 mg/dL (70-105); Potassium 5.1 mmol/L (3.5-5.1); Sodium 133 mmol/L (136-145)
[2025-01-31] MEDS ORDERED: Heparin 10,000 UNITS/ 10 ML VIAL ONE (10:36)
[2025-02-01 05:52] LABS: Anion Gap 16 mmol/L (10-20); BUN (Urea Nitrogen) 39 mg/dL (8.9-20.6); Calc. Creatinine Clearance 11 mL/min (70-130); Calcium 8.6 mg/dL (7.8-10.44); Carbon Dioxide 25 mmol/L (22-29); Chloride 97 mmol/L (98-107); Glucose 87 mg/dL (70-105); Potassium 5.0 mmol/L (3.5-5.1); Sodium 133 mmol/L (136-145)
[2025-02-01 07:15] LABS: #Basophils 0.03 10x3/uL (0.0-0.2); #Eosinophils 0.19 10x3/uL (0.0-0.7); #Monocytes 0.67 10x3/uL (0.11-0.59); #Neutrophils 3.92 10x3/uL (1.40-6.50); %Basophils 0.5 % (0.0-1.0); %Eosinophils 3.0 % (0.0-10.0); %Lymphocytes 22.3 % (21.0-51.0); %Monocytes 10.7 % (0.0-10.0); %Neutrophils 62.9 % (42.0-75.0); Hematocrit 31.0 % (42.0-52.0); Hemoglobin 10.3 g/dL (14.0-18.0); Mean Corpuscular Hemoglobin 28.8 pg (27.0-31.0); Mean Corpuscular Volume 86.6 fL (78.0-98.0); Platelet Count 222 10x3/uL (130-400); Red Blood Cell (RBC) Count 3.58 mill/uL (4.70-6.10); White Blood Cell (WBC) Count 6.24 10x3/uL (4.8-10.8)
[2025-02-01] MEDS ORDERED: Heparin 10,000 UNITS/ 10 ML VIAL ONE (10:00)
[2025-02-02 05:57] LABS: #Basophils 0.03 10x3/uL (0.0-0.2); #Eosinophils 0.14 10x3/uL (0.0-0.7); #Monocytes 0.76 10x3/uL (0.11-0.59); #Neutrophils 4.59 10x3/uL (1.40-6.50); %Basophils 0.4 % (0.0-1.0); %Eosinophils 2.0 % (0.0-10.0); %Lymphocytes 19.9 % (21.0-51.0); %Monocytes 11.0 % (0.0-10.0); %Neutrophils 66.3 % (42.0-75.0); Hematocrit 33.4 % (42.0-52.0); Hemoglobin 10.8 g/dL (14.0-18.0); Mean Corpuscular Hemoglobin 28.2 pg (27.0-31.0); Mean Corpuscular Volume 87.2 fL (78.0-98.0); Platelet Count 206 10x3/uL (130-400); Red Blood Cell (RBC) Count 3.83 mill/uL (4.70-6.10); White Blood Cell (WBC) Count 6.93 10x3/uL (4.8-10.8)
[2025-02-02 06:14] LABS: Anion Gap 15 mmol/L (10-20); BUN (Urea Nitrogen) 30 mg/dL (8.9-20.6); Calc. Creatinine Clearance 14 mL/min (70-130); Calcium 8.5 mg/dL (7.8-10.44); Carbon Dioxide 26 mmol/L (22-29); Chloride 97 mmol/L (98-107); Glucose 90 mg/dL (70-105); Potassium 4.8 mmol/L (3.5-5.1); Sodium 133 mmol/L (136-145)
[2025-02-03 05:53] LABS: #Basophils Less than 0.03 10x3/uL (0.0-0.2); #Eosinophils 0.21 10x3/uL (0.0-0.7); #Monocytes 0.63 10x3/uL (0.11-0.59); #Neutrophils 2.96 10x3/uL (1.40-6.50); %Basophils 0.4 % (0.0-1.0); %Eosinophils 4.0 % (0.0-10.0); %Lymphocytes 27.0 % (21.0-51.0); %Monocytes 12.0 % (0.0-10.0); %Neutrophils 56.2 % (42.0-75.0); Hematocrit 30.8 % (42.0-52.0); Hemoglobin 10.0 g/dL (14.0-18.0); Mean Corpuscular Hemoglobin 28.3 pg (27.0-31.0); Mean Corpuscular Volume 87.3 fL (78.0-98.0); Platelet Count 179 10x3/uL (130-400); Red Blood Cell (RBC) Count 3.53 mill/uL (4.70-6.10); White Blood Cell (WBC) Count 5.26 10x3/uL (4.8-10.8)
[2025-02-03 06:03] LABS: Anion Gap 16 mmol/L (10-20); BUN (Urea Nitrogen) 44 mg/dL (8.9-20.6); Calc. Creatinine Clearance 10 mL/min (70-130); Carbon Dioxide 25 mmol/L (22-29); Chloride 96 mmol/L (98-107); Potassium 4.9 mmol/L (3.5-5.1); Sodium 132 mmol/L (136-145)
[2025-02-03 06:04] LABS: Calcium 8.5 mg/dL (7.8-10.44); Glucose 89 mg/dL (70-105)
[2025-02-03] MEDS ORDERED: Heparin 10,000 UNITS/ 10 ML VIAL ONE (10:03)
[2025-02-03 13:31] VITALS: BP 177/82; TEMP 98.3
== END 2025-02-03 18:00 | disposition home or self-care (01) | DRG 304 ==
LOC: ERS 10:03 → CCU 21:23 → SURG B 01-22 20:01 → UNDODISIN 02-03 16:59
PROVIDERS: ADMIT Student in an Organized Health Care Education/Training Program; ATTEND Internal Medicine
PROC: XX20X89 Monitoring of Brain Electrical Activity, Computer-aided Detection and Notification, New Technology Group 9 (ICD-10-PCS; principal; 2025-01-20)
DX: I16.1 Hypertensive emergency (principal); G93.41 Metabolic encephalopathy; J96.01 Acute respiratory failure with hypoxia; N18.6 End stage renal disease; E87.20 Acidosis, unspecified; E87.1 Hypo-osmolality and hyponatremia; E87.5 Hyperkalemia; R56.9 Unspecified convulsions; I12.0 Hypertensive chronic kidney disease with stage 5 chronic kidney disease or end stage renal disease; Z99.2 Dependence on renal dialysis; Z79.899 Other long term (current) drug therapy; D63.1 Anemia in chronic kidney disease; N35.919 Unspecified urethral stricture, male, unspecified site; E87.70 Fluid overload, unspecified; N30.90 Cystitis, unspecified without hematuria
CPT/HCPCS: 36415; 36416; 70450; 70551; 71046; 74176; 80048; 80053; 80202; 80306; 81001; 82550; 83605; 83690; 83735; 83880; 84484; 85025; 86580; 86704; 86706; 86803; 87040; 87340; 93005; 96365; 96366; 96368; 96372; 96375; 99292; J0360; J0692; J0696; J1200; J1644; J1815; J1953; J2060; J2405; J2470; J2765; J3373; J7030; J7050; Q5105

== ENCOUNTER 2025-02-06 08:00 | Emergency (ER) | payer OTHER ==
[2025-02-06] MEDS ORDERED: Acetaminophen 500 MG TAB ONE (08:42)
[2025-02-06 08:46] LABS: #Basophils 0.04 10x3/uL (0.0-0.2); #Eosinophils 0.24 10x3/uL (0.0-0.7); #Monocytes 0.53 10x3/uL (0.11-0.59); #Neutrophils 5.88 10x3/uL (1.40-6.50); %Basophils 0.5 % (0.0-1.0); %Eosinophils 3.1 % (0.0-10.0); %Lymphocytes 14.3 % (21.0-51.0); %Monocytes 6.8 % (0.0-10.0); %Neutrophils 75.0 % (42.0-75.0); Hematocrit 32.6 % (42.0-52.0); Hemoglobin 10.4 g/dL (14.0-18.0); Mean Corpuscular Hemoglobin 28.9 pg (27.0-31.0); Mean Corpuscular Volume 90.6 fL (78.0-98.0); Platelet Count 183 10x3/uL (130-400); Red Blood Cell (RBC) Count 3.60 mill/uL (4.70-6.10); White Blood Cell (WBC) Count 7.83 10x3/uL (4.8-10.8)
[2025-02-06 09:20] LABS: ALT (SGPT) Less than 7 U/L (Less than 45); AST (SGOT) 13 U/L (11-34); Albumin 3.5 g/dL (3.1-4.5); Alkaline Phosphatase 52 U/L (40-110); Anion Gap 22 mmol/L (10-20); BUN (Urea Nitrogen) 85 mg/dL (8.9-20.6); Bilirubin, Total 0.4 mg/dL (0.3-1.2); Calc. Creatinine Clearance 0 mL/min (70-130); Calcium 8.5 mg/dL (7.8-10.44); Carbon Dioxide 21 mmol/L (22-29); Chloride 106 mmol/L (98-107); Globulin 3.0 g/dL (2.4-3.5); Glucose 137 mg/dL (70-105); Potassium 5.7 mmol/L (3.5-5.1); Sodium 143 mmol/L (136-145)
[2025-02-06] MEDS ORDERED: Heparin 10,000 UNITS/ 10 ML VIAL ONE (11:17)
== END 2025-02-06 17:34 | disposition home or self-care (01) ==
LOC: ERS 08:00
DX: E87.5 Hyperkalemia (principal); M62.838 Other muscle spasm; I12.0 Hypertensive chronic kidney disease with stage 5 chronic kidney disease or end stage renal disease; E11.22 Type 2 diabetes mellitus with diabetic chronic kidney disease; N18.6 End stage renal disease; Z99.2 Dependence on renal dialysis
CPT/HCPCS: 36415; 71046; 80053; 85025; 93005; J1644